=== PATIENT | male | born 1990 | race Caucasian/White ===

== ENCOUNTER 2017-03-21 08:39 | Emergency (ER) | payer BC ==
[~2017-03-21] VITALS: Ht 185.4 cm; Wt 81.6 kg
[2017-03-21] MEDS ORDERED: NKM (08:50)
[2017-03-21] MEDS ORDERED: Tubing IV Cassette IV ONE (08:58)
[2017-03-21] MEDS ORDERED: Ketorolac 30mg Inj IV ONE (09:00)
--- NOTE | 2017-03-21 09:09 | Emergency Room Report ---
History of Present Illness General Chief Complaint: Pain Source: Patient Present Illness HPI This patient presents with sudden onset of left-sided flank pain that radiates to his left groin about one hour prior to arrival. Patient states that he was in his normal state of health and pain free. He states he noted that he had an urgency to urinate and then suddenly developed pain. He denies fever or chills. He has had nausea and vomiting secondary to severe pain and pressure in his left groin. He denies hematuria. He has no other complaints. Allergies: Coded Allergies: PENICILLINS (Verified Allergy, Unknown, 03/21/17) Patient History Past Medical History: none, see triage record Social History: Denies: alcohol use, drug use, smoking Reviewed Nursing Documentation: PMH: Agreed, PSxH: Agreed Nursing Documentation-PMH Past Medical History: No Stated History Review of Systems All Other Systems: negative except mentioned in HPI Physical Exam Vital Signs Date Time Temp Pulse Resp B/P Pulse Ox O2 Delivery O2 Flow Rate FiO2 03/21/17 08:42 97.7 79 20 114/70 100 Sp02 EP Interpretation: reviewed, normal General Appearance: no apparent distress, alert, GCS 15, non-toxic Head: normocephalic, atraumatic Eyes: bilateral eye PERRL, bilateral eye normal inspection ENT: hearing grossly normal, normal pharynx, no angioedema, normal voice Neck: full range of motion, supple/symm/no masses Respiratory: chest non-tender, lungs clear, normal breath sounds, speaking full sentences Cardiovascular #1: regular rate, rhythm, no edema Gastrointestinal: normal bowel sounds, soft, non-distended, no guarding, no rebound, tenderness - LLQ Rectal: deferred Genitourinary: CVA tenderness (L) Musculoskeletal: back normal, normal range of motion, non-tender Neurologic: alert, oriented x3, responsive, motor strength/tone normal, sensory intact, speech normal Psychiatric: judgement/insight normal, memory normal, mood/affect normal, no suicidal/homicidal ideation Skin: normal color, no rash, warm/dry, well hydrated Medical Decision Making Diagnostic Impression: Primary Impression: Urolithiasis ER Course This patient has a kidney stone. This is identified on CT. The patient was given pain control and IV fluids with significant relief of symptoms. There is no evidence of infected stone. Overall, the patient is nontoxic and well- appearing. Laboratory workup is benign and noncontributory. The patient is instructed to followup with a urologist. The patient will be treated with pain control medications and Flomax. The patient is given close return precautions and followup instructions. Labs Test 03/21/17 09:00 03/21/17 10:20 White Blood Count 6.6 K/UL (4.8-10.8) Red Blood Count 4.61 M/UL (4.70-6.10) Hemoglobin 14.7 G/DL (14.2-18.0) Hematocrit 42.5 % (42.0-52.0) Mean Corpuscular Volume 92 FL (80-99) Mean Corpuscular Hemoglobin 31.9 PG (27.0-31.0) Mean Corpuscular Hemoglobin Concent 34.6 G/DL (32.0-36.0) Red Cell Distribution Width 11.1 % (11.6-14.8) Platelet Count 172 K/UL (150-450) Mean Platelet Volume 7.6 FL (6.5-10.1) Neutrophils (%) (Auto) 45.1 % (45.0-75.0) Lymphocytes (%) (Auto) 41.4 % (20.0-45.0) Monocytes (%) (Auto) 11.2 % (1.0-10.0) Eosinophils (%) (Auto) 1.5 % (0.0-3.0) Basophils (%) (Auto) 0.9 % (0.0-2.0) Sodium Level 142 mEQ/L (135-145) Potassium Level 3.8 mEQ/L (3.4-4.9) Chloride Level 102 mEQ/L (98-107) Carbon Dioxide Level 27 mEQ/L (20-30) Anion Gap 13 (5-15) Blood Urea Nitrogen 15 mg/dL (7-23) Creatinine 1.0 mg/dL (0.7-1.2) Estimat Glomerular Filtration Rate > 60 mL/min (>60) Glucose Level 126 mg/dL (74-106) Calcium Level 9.7 mg/dL (8.6-10.2) Total Bilirubin 1.2 mg/dL (0.0-1.2) Direct Bilirubin 0.2 mg/dL (0.1-0.3) Aspartate Amino Transf (AST/SGOT) 22 U/L (5-40) Alanine Aminotransferase (ALT/SGPT) 16 U/L (3-41) Alkaline Phosphatase 68 U/L (40-129) Total Protein 7.1 g/dL (6.6-8.7) Albumin 4.5 g/dL (3.5-5.2) Globulin 2.6 g/dL Albumin/Globulin Ratio 1.7 (1.0-2.7) Lipase 23 U/L (< 60) Urine Color Yellow Urine Appearance Clear Urine pH 6 (4.5-8.0) Urine Specific [place] 1.025 (1.005-1.035) Urine Protein 2+ (NEGATIVE) Urine Glucose (UA) Negative (NEGATIVE) Urine Ketones 2+ (NEGATIVE) Urine Occult Blood 5+ (NEGATIVE) Urine Nitrite Negative (NEGATIVE) Urine Bilirubin Negative (NEGATIVE) Urine Urobilinogen 1 MG/DL (0.0-1.0) Urine Leukocyte Esterase 1+ (NEGATIVE) Urine RBC 30-40 /HPF (0 - 0) Urine WBC 0-2 /HPF (0 - 0) Urine Squamous Epithelial Cells Occasional /LPF Urine Bacteria Occasional /HPF (NONE) Urine Mucus Many /LPF (NONE/OCC) Labs Test 03/21/17 09:00 03/21/17 10:20 White Blood Count 6.6 K/UL (4.8-10.8) Red Blood Count 4.61 M/UL (4.70-6.10) Hemoglobin 14.7 G/DL (14.2-18.0) Hematocrit 42.5 % (42.0-52.0) Mean Corpuscular Volume 92 FL (80-99) Mean Corpuscular Hemoglobin 31.9 PG (27.0-31.0) Mean Corpuscular Hemoglobin Concent 34.6 G/DL (32.0-36.0) Red Cell Distribution Width 11.1 % (11.6-14.8) Platelet Count 172 K/UL (150-450) Mean Platelet Volume 7.6 FL (6.5-10.1) Neutrophils (%) (Auto) 45.1 % (45.0-75.0) Lymphocytes (%) (Auto) 41.4 % (20.0-45.0) Monocytes (%) (Auto) 11.2 % (1.0-10.0) Eosinophils (%) (Auto) 1.5 % (0.0-3.0) Basophils (%) (Auto) 0.9 % (0.0-2.0) Sodium Level 142 mEQ/L (135-145) Potassium Level 3.8 mEQ/L (3.4-4.9) Chloride Level 102 mEQ/L (98-107) Carbon Dioxide Level 27 mEQ/L (20-30) Anion Gap 13 (5-15) Blood Urea Nitrogen 15 mg/dL (7-23) Creatinine 1.0 mg/dL (0.7-1.2) Estimat Glomerular Filtration Rate > 60 mL/min (>60) Glucose Level 126 mg/dL (74-106) Calcium Level 9.7 mg/dL (8.6-10.2) Total Bilirubin 1.2 mg/dL (0.0-1.2) Direct Bilirubin 0.2 mg/dL (0.1-0.3) Aspartate Amino Transf (AST/SGOT) 22 U/L (5-40) Alanine Aminotransferase (ALT/SGPT) 16 U/L (3-41) Alkaline Phosphatase 68 U/L (40-129) Total Protein 7.1 g/dL (6.6-8.7) Albumin 4.5 g/dL (3.5-5.2) Globulin 2.6 g/dL Albumin/Globulin Ratio 1.7 (1.0-2.7) Lipase 23 U/L (< 60) Last Vital Signs Date Time Temp Pulse Resp B/P Pulse Ox O2 Delivery O2 Flow Rate FiO2 03/21/17 08:42 97.7 79 20 114/70 100 Disposition: HOME, SELF-CARE Condition: Improved Scripts Tamsulosin HCl (Flomax) 0.4 Mg Cap.er.24h 0.4 MG ORAL DAILY, #10 CAP Prov: CAITLIN WARNER D.O. 03/21/17 Hydrocodone Bit/Acetaminophen 5-325* (NORCO 5-325*) 1 Each Tablet 1 TAB ORAL Q4HR Y for For Pain, #20 TAB 0 Refills Prov: CAITLIN WARNER D.O. 03/21/17 Ibuprofen* (MOTRIN*) 600 Mg Tablet 600 MG ORAL THREE TIMES A DAY, #30 TAB 0 Refills Prov: CAITLIN WARNER D.O. 03/21/17 Patient Instructions: Kidney Stones, [id number] CAITLIN WARNER D.O. Mar 21, 2017 09:09
[2017-03-21 09:10] VITALS: BP 126/76
[2017-03-21 09:15] LABS: BASOPHILS % (AUTO) 0.9 % (0.0-2.0); EOSINOPHILS % (AUTO) 1.5 % (0.0-3.0); LYMPHOCYTES % (AUTO) 41.4 % (20.0-45.0); MEAN CORPUSCULAR HEMOGLOBIN 31.9 PG (27.0-31.0); MEAN CORPUSCULAR HGB CONC 34.6 G/DL (32.0-36.0); MEAN CORPUSCULAR VOLUME 92 FL (80-99); MEAN PLATELET VOLUME 7.6 FL (6.5-10.1); MONOCYTES % (AUTO) 11.2 % (1.0-10.0); NEUTROPHILS % (AUTO) 45.1 % (45.0-75.0); PLATELET COUNT 172 K/UL (150-450); RED BLOOD COUNT 4.61 M/UL (4.70-6.10); RED CELL DISTRIBUTION WIDTH 11.1 % (11.6-14.8); WHITE BLOOD COUNT 6.6 K/UL (4.8-10.8)
[2017-03-21 09:32] LABS: ALANINE AMINOTRANSFERASE 16 U/L (3-41); ALBUMIN/GLOBULIN RATIO 1.7 (1.0-2.7); ANION GAP 13 (5-15); ASPARTATE AMINO TRANSFERASE 22 U/L (5-40); CALCIUM 9.7 mg/dL (8.6-10.2); CARBON DIOXIDE 27 mEQ/L (20-30); CHLORIDE 102 mEQ/L (98-107); GLOMERULAR FILTRATION RATE > 60 mL/min (>60); HEMOLYSIS 9; LIPASE 23 U/L (< 60); POTASSIUM 3.8 mEQ/L (3.4-4.9); SODIUM 142 mEQ/L (135-145); TOTAL PROTEIN 7.1 g/dL (6.6-8.7)
[2017-03-21] MEDS ORDERED: Morphine Sulfate 4mg/ml Inj IVP ONE (09:45)
[2017-03-21 09:50] LABS: BILIRUBIN,DIRECT 0.2 mg/dL (0.1-0.3)
[2017-03-21 10:12] VITALS: BP 110/75
[2017-03-21 10:35] LABS: APPEARANCE,URINE CLEAR; KETONES,URINE 2+ (NEGATIVE); LEUKOCYTE ESTERASE ,URINE 1+ (NEGATIVE); NITRITE,URINE NEGATIVE (NEGATIVE); PH,URINE 6 (4.5-8.0); PROTEIN,URINE 2+ (NEGATIVE); UROBILINOGEN,URINE 1 MG/DL (0.0-1.0)
[2017-03-21 10:45] LABS: BACTERIA,URINE OCCASIONAL /HPF; MUCUS,URINE MANY /LPF (NONE/OCC); RBC,URINE 30-40 /HPF (0 - 0); SQUAMOUS EPITHELIAL CELL,UR OCCASIONAL /LPF (NONE/OCC); WBC,URINE 0-2 /HPF (0 - 0)
[2017-03-21] MEDS ORDERED: IBUPROFEN600 MG ORAL (10:46)
[2017-03-21] MEDS ORDERED: FLOMAX0.4 MG ORAL (10:46)
[2017-03-21] MEDS ORDERED: NORCO 5-325 TA1 EACH ORAL (10:46)
[2017-03-21 11:10] VITALS: BP 125/76
--- NOTE | 2017-03-21 13:20 | Diagnostic Imaging Report ---
Indications: Onset left flank pain radiating to left groin for one hour Technique: Continuous helical CT imaging of the abdomen and pelvis was performed with automatic exposure control on a Siemens sensation [address] scanner. Axial, coronal, and sagittal images were reconstructed at 3 mm slice thickness. No oral or IV contrast was administered per protocol. CTDI volume(s): 12 mGy Total DLP: 85 mGy-cm Findings: Comparison: None. 6 mm stone is present in the distal aspect of the left ureter several centimeters above the ureterovesical junction. Left ureter and renal collecting system above this are mildly to moderately dilated. Very mild haziness surrounds the left kidney. No additional left-sided stones are demonstrated. Right kidney and ureter, urinary bladder demonstrate no intraparenchymal or intraluminal stones, collecting system or ureteral dilation, perinephric or periureteral stranding. Appendix not identified.. The gastrointestinal tract is normal in caliber. No extraluminal gas or fluid collections are demonstrated. Remainder of visualized abdominopelvic anatomy demonstrates no other obvious abnormality, though lack of oral and IV contrast limits evaluation. Lung bases and adjacent pleural surfaces are clear. No focal skeletal abnormalities demonstrated. IMPRESSION: 6 mm obstructing stone distal left ureter with [id number] hydronephrosis, perinephric haziness.. Visualization of appendix -- no evidence of acute appendicitis. No other evidence of acute abdominopelvic disease. Lack of oral and IV contrast limits evaluation, however, and subtle abnormalities may be missed. Repeat CT scan with full oral and IV contrast preparation recommended for more complete evaluation, as clinically indicated. The CT scanner at [facility] is accredited by the [employer] and the scans are performed using protocols designed to limit radiation exposure to as low as reasonably achievable to attain images of sufficient resolution adequate for diagnostic evaluation.
== END 2017-03-21 11:25 | disposition home or self-care (01) ==
LOC: EMR 09:05
DX: N20.9 Urinary calculus, unspecified (principal); Z88.0 Allergy status to penicillin
CPT/HCPCS: 36415; 74176; 80053; 81003; 82248; 83690; 85025; 96360; 96374; 96375; 99284; J1885; J2270; J2405

== ENCOUNTER 2020-10-04 01:59 | Emergency (ER) | payer BC, MEDICAID ==
[~2020-10-04] VITALS: Ht 185.4 cm; Wt 81.6 kg
[~2020-10-04 01:59] MED LIST: FLOMAX0.4 MG ORAL; IBUPROFEN600 MG ORAL; NKM; NORCO 5-325 TA1 EACH ORAL
[2020-10-04 02:05] VITALS: BP 123/78
--- NOTE | 2020-10-04 02:12 | NUR ---
Patient presents to the ED with hives across his whole upper body, reports of using a bath bomb 2 days ago and began feeling itchy, then earlier tonight he woke up and noticed that hives were across his body. patient denies any SOB, reports of taking 25mg benadryl 3 times a day for his symptoms. will wait for further orders
[2020-10-04] MEDS ORDERED: BENADRYL25 MG ORAL (02:44)
[2020-10-04] MEDS ORDERED: PREDNISONE20 MG ORAL (02:44)
--- NOTE | 2020-10-04 02:44 | Emergency Room Report ---
History of Present Illness General Chief Complaint: Skin Rash/Abscess Source: Patient Present Illness [facility] This a 29-year-old male with no past medical history. He is presents with chief plaint of body rash. Onset started last evening. Before he used a bath balm and then he started breaking out. He took Benadryl got better. Now is getting worse. Very itchy. Slight warmth. No fever chills but no nausea no vomiting. No rest or complaint. No tongue edema. Never had this problem before. No other oral ingestion. Allergies: Coded Allergies: PENICILLINS (Verified Allergy, Unknown, 03/21/17) COVID-19 Screening Contact w/high risk pt: No Experienced COVID-19 symptoms?: No COVID-19 Testing performed G[employer]: Yes - august 2020 COVID-19 Screening: Negative COVID-19 COVID-19 Testing Source: [facility] Patient History Past Medical History: see triage record, old chart reviewed Past Surgical History: none Pertinent Family History: none Social History: Denies: smoking Immunizations: other Reviewed Nursing Documentation: PMH: Agreed; PSxH: Agreed Nursing Documentation-PMH Past Medical History: No Stated History Review of Systems Eye: Denies: eye pain, blurred vision ENT: Denies: ear pain, nose congestion, throat swelling Respiratory: Denies: cough, shortness of breath Cardiovascular: Denies: chest pain, palpitations Gastrointestinal: Denies: abdominal pain, diarrhea, nausea, vomiting Musculoskeletal: Denies: back pain, joint pain Skin: Reports: rash Neurological: Denies: headache, numbness Endocrine: Denies: increased thirst, increased urine Hematologic/Lymphatic: Denies: easy bruising All Other Systems: negative except mentioned in HPI Physical Exam Vital Signs Date Time Temp Pulse Resp B/P (MAP) Pulse Ox O2 Delivery O2 Flow Rate FiO2 10/04/20 02:04 98.2 86 18 123/78 (93) 98 Room Air Vitals normal Sp02 EP Interpretation: reviewed, normal General Appearance: well appearing, no apparent distress, alert Head: normocephalic, atraumatic Eyes: bilateral eye PERRL, bilateral eye EOMI ENT: hearing grossly normal, normal pharynx Neck: full range of motion, supple, no meningismus Respiratory: chest non-tender, lungs clear, normal breath sounds Cardiovascular #1: regular rate, rhythm, no murmur Gastrointestinal: normal bowel sounds, non tender, no mass, no organomegaly, no bruit, non-distended Musculoskeletal: back normal, normal range of motion, gait/station normal Psychiatric: mood/affect normal Skin: other - Diffuse urticaria, mostly on back and torso Medical Decision Making Diagnostic Impression: Primary Impression: Allergic reaction Qualified Codes: T78.40XA - Allergy, unspecified, initial encounter ER Course This patient presents with urticaria secondary to allergic reaction. No evidence of infectious cause. No evidence of anaphylaxis. Last Vital Signs Date Time Temp Pulse Resp B/P (MAP) Pulse Ox O2 Delivery O2 Flow Rate FiO2 10/04/20 02:05 98.2 86 18 123/78 98 Room Air Status: improved Disposition: HOME, SELF-CARE Condition: Stable Scripts Prednisone* (PREDNISONE*) 20 Mg Tablet 40 MG ORAL DAILY, #10 TAB Prov: Ash Zepeda MD 10/04/20 Diphenhydramine Hcl* (BENADRYL*) 25 Mg Capsule 50 MG ORAL Q6H PRN for Itching, #30 CAP Prov: Ash Zepeda MD 10/04/20 Referrals: MARCE PORTER,REFERRING (PCP) Additional Instructions: Follow-up with your doctor in 7 days. Return if symptoms worsen. Ash Zepeda MD Oct 04, 2020 02:44
[2020-10-04] MEDS ORDERED: DiphenhydrAMINE 50mg/ml Inj IVP ONE (02:45)
[2020-10-04] MEDS ORDERED: Solu-MEDROL 125mg Inj IVP ONE (02:45)
[2020-10-04 03:03] VITALS: BP 122/72
--- NOTE | 2020-10-04 03:03 | NUR ---
ER DISCHARGE NOTE: Patient is cleared to be discharged per ERMD, pt is aox4, on room air, with stable vital signs. pt was given dc and prescription instructions, pt was able to verbalize understanding, pt id band and iv site removed without complications. pt is able to ambulate with steady gait. pt took all belongings.
== END 2020-10-04 03:03 | disposition home or self-care (01) ==
LOC: EMR 02:35
DX: T78.40XA Allergy, unspecified, initial encounter (principal); Z88.0 Allergy status to penicillin; X58.XXXA Exposure to other specified factors, initial encounter; Y92.9 Unspecified place or not applicable
CPT/HCPCS: 96374; 96375; J1200; J2930; Z7502; 99284